=== PATIENT | female | born 1965 | race Caucasian/White ===

== ENCOUNTER 2021-08-05 12:34 | Outpatient (CLI) | payer MEDICARE ==
[2021-08-05 13:36] LABS: Hemoglobin 14.1 g/dL (12.0-15.5); Mean Corpuscular HGB CONC 34.1 g/dL (32.0-36.0); Mean Corpuscular Volume 93.9 fl (81.6-98.3); Mean Platelet Volume 10.8 fl (7.4-10.4); Platelet Count 347 10x3/uL (150-450); RBC Distribution Width 12.4 % (11.5-14.5); Red Blood Cell (RBC) Count 4.41 10x6/uL (3.90-5.03); White Blood Cell (WBC) Count 6.7 10x3/uL (3.5-10.5)
[2021-08-05 13:54] LABS: Anion Gap 14 mmol/L (10-20); BUN (Urea Nitrogen) 18 mg/dL (9.8-20.1); Calc. Creatinine Clearance 0 mL/min (70-130); Calcium 10.1 mg/dL (7.8-10.44); Carbon Dioxide 27 mmol/L (22-29); Chloride 105 mmol/L (98-107); Glucose 86 mg/dL (70-105); Potassium 5.2 mmol/L (3.5-5.1); Sodium 141 mmol/L (136-145)
[2021-08-06 00:16] LABS: SARS-CoV-2 PCR by NAA Not Detected (NotDetected)
== END 2021-08-05 12:35 | disposition home or self-care (01) ==
LOC: LABBT 12:34
PROVIDERS: ATTEND Neurological Surgery
DX: Z01.818 Encounter for other preprocedural examination (principal); M47.12 Other spondylosis with myelopathy, cervical region; Z20.822 Contact with and (suspected) exposure to COVID-19
CPT/HCPCS: 80048; 85027; 93005; U0003; U0005; 93010

== ENCOUNTER 2021-08-10 07:05 | Day surgery (SDC) | payer MEDICARE, MEDICAID ==
[2021-08-06 17:08] VITALS: BMI 26.5
[2021-08-10] MEDS ORDERED: Midazolam HCl 2 mg/2 ml Vial ONE (08:54)
[2021-08-10] MEDS ORDERED: fentaNYL Citrate/PF 100 MCG/2 ML SYRINGE ONE (09:16)
[2021-08-10] MEDS ORDERED: HYDROmorphone 0.5 MG/0.5 ML SYRINGE ONE (09:16)
[2021-08-10] MEDS ORDERED: PROPOFOL 200 MG/20 ML VIAL ONE (09:45)
[2021-08-10] MEDS ORDERED: Glycopyrrolate 0.2 MG/ML 5 ML SYRINGE ONE (09:45)
[2021-08-10] MEDS ORDERED: Ondansetron PF 4 MG/2 ML Vial ONE (09:45)
[2021-08-10] MEDS ORDERED: Ketorolac Tromethamine 30 MG/ML VIAL ONE (09:45)
[2021-08-10] MEDS ORDERED: Rocuronium Bromide 10 MG/ML (10ML VIAL) ONE (09:45)
[2021-08-10] MEDS ORDERED: Lidocaine 1% PF 5 ML VIAL ONE (09:45)
[2021-08-10] MEDS ORDERED: Dexamethasone 20 MG/5 ML VIAL ONE (09:45)
[2021-08-10] MEDS ORDERED: Fentanyl 100 MCG/2 ML VIAL ONE ×2 (10:57→11:17)
[2021-08-10] MEDS ORDERED: HYDROcodone/Acetaminophen 5/325 mg Tablet ONE (12:55)
== END 2021-08-10 14:45 | disposition home or self-care (01) ==
LOC: SDC 07:05
PROVIDERS: ATTEND Neurological Surgery
PROC: 0RG10A0 Fusion of Cervical Vertebral Joint with Interbody Fusion Device, Anterior Approach, Anterior Column, Open Approach (ICD-10-PCS; principal; 2021-08-10)
DX: M47.12 Other spondylosis with myelopathy, cervical region (principal); M48.02 Spinal stenosis, cervical region; J44.9 Chronic obstructive pulmonary disease, unspecified; Z79.899 Other long term (current) drug therapy
CPT/HCPCS: 76000; C1713; J1170; J2250; J3010

== ENCOUNTER 2021-09-03 12:10 | Outpatient (CLI) | payer MEDICARE, MEDICAID | END 2021-09-03 12:11 | disposition home or self-care (01) | LOC: TBSIIMAG 12:10 | PROVIDERS: ATTEND Neurological Surgery | DX: M47.12 Other spondylosis with myelopathy, cervical region (principal); Z98.890 Other specified postprocedural states | CPT/HCPCS: 72040 ==